=== PATIENT | female | born 1990 | race Caucasian/White ===

== ENCOUNTER 2020-08-24 05:47 | Day surgery (SDC) | payer MEDICARE, MEDICAID ==
[~2020-08-24] VITALS: Ht 149.9 cm; Wt 43.6 kg
[~2020-08-24 05:47] MED LIST: ACET80TA PO; DICY10SY PO; LEVE100S6 PO; LORA2ORA7 PO; NORE0.3547 PO; POLY17PO5 PO; RESCUE REMEDY; SIME125T PO; [UNRECOGNIZED DRUG - OTHER] PO
[2020-08-24] MEDS ORDERED: CHLORHEXIDINE 15 ML UDC MM STA (06:06)
[2020-08-24] MEDS ORDERED: LACTATED RINGERS 1,000 ML IV SCH (06:30)
[2020-08-24 06:39] VITALS: BP 107/67
[2020-08-24] MEDS ORDERED: MIDAZOLAM 1 MG/ML, 2ML ONE (07:05)
[2020-08-24] MEDS ORDERED: PROPOFOL 10 MG/ML, 50ML ONE (07:52)
[2020-08-24] MEDS ORDERED: FENTANYL PF 100 MCG/2ML IV PRN (08:00)
[2020-08-24] MEDS ORDERED: LORazepam 2 MG/ML, 1ML IVPush PRN (08:00)
== END 2020-08-24 11:20 | disposition home or self-care (01) ==
LOC: OUT 05:47
PROVIDERS: ATTEND Internal Medicine
DX: R19.4 Change in bowel habit (principal); K20.90 Esophagitis, unspecified without bleeding; F84.2 Rett's syndrome; R62.59 Other lack of expected normal physiological development in childhood; Z20.822 Contact with and (suspected) exposure to COVID-19; Z79.899 Other long term (current) drug therapy; Z88.8 Allergy status to other drugs, medicaments and biological substances
CPT/HCPCS: 43239; 45380; 87635; 88305; J2250; J2704; J7120